=== PATIENT | female | born 1935 | race Caucasian/White ===

== ENCOUNTER → 2018-05-22 08:21 | Outpatient (CLI) | payer MEDICARE | END | disposition home or self-care (01) | LOC: D.RT 08:21 | DX: R06.00 Dyspnea, unspecified (principal) ==

== ENCOUNTER → 2018-12-19 08:11 | Outpatient (CLI) | payer MEDICARE ==
[2018-12-22 22:06] LABS: IMMUNOGLOBULIN E 40 IU/mL (0-100)
== END | disposition home or self-care (01) ==
LOC: D.RAD 12-15 09:30 → D.RT 12-15 10:15 → D.LAB 12-15 10:30
PROVIDERS: Internal Medicine Pulmonary Disease
DX: J45.909 Unspecified asthma, uncomplicated (principal); R06.09 Other forms of dyspnea